=== PATIENT | male | born 1990 | race Caucasian/White ===

== ENCOUNTER 2020-09-10 18:56 | Emergency (ER) | payer MEDICAID, SELFPAY ==
[2020-09-10 18:58] VITALS: BP 120/77; PULSE 90; RESP 16; TEMP 36.9; O2SAT 99; BMI 27.3
--- NOTE | 2020-09-10 19:11 | RAD_ITS ---
STUDY: X-RAY - RIGHT FOOT CLINICAL: Male, 30 years old. foot pain after injury TECHNIQUE: 3 view(s) of the foot. COMPARISON: None. FINDINGS: Normal talus, calcaneus, and tarsal bones. Normal visualized subtalar, talonavicular, calcaneocuboid, tarsal and tarsometatarsal articulations. Normal metatarsi. No visualized fracture or displaced bony fragment. Normal metatarsophalangeal joint of the great toe. Normal tibial and fibular sesamoid bones. Normal interphalangeal joint of the great toe. Normal phalanges of the great toe. Normal second through fifth metatarsophalangeal joints. Normal interphalangeal joints and phalanges of the lesser toes. The soft tissue structures are unremarkable. RAD/Foot min 3 Views IMPRESSION: Normal x-ray examination of the foot. Electronically Signed: Bebeto Duggan MD at 20:12 EDT , Service support ,
--- NOTE | 2020-09-10 19:15 | RAD_ITS ---
STUDY: X-RAY - RIGHT ANKLE REASON FOR EXAM: Male, 30 years old. pain TECHNIQUE: 3 view(s) of the ankle. COMPARISON: None. FINDINGS: Normal visualized distal tibia and fibula. Normal medial and lateral malleoli. Normal tibiotalar articulation and ankle mortise. Normal visualized talus and calcaneus. The visualized subtalar, talonavicular, calcaneocuboid and tarsal articulations are normal. There is no demonstrated fracture. The soft tissue structures are unremarkable. RAD/Ankle min 3 Views IMPRESSION: Normal x-ray examination of the ankle. Electronically Signed: Bebeto Duggan MD at 20:12 EDT , Service support ,
--- NOTE | 2020-09-10 19:53 | EDS_ITS ---
HPI History of Present Illness Chief Complaint: Lower Extremity Injury Narrative Narrative: Patient presenting with right ankle pain. He states he stepped off a curb and has noticed pain on the medial aspect of his right ankle as well as the right foot. Patient is ambulatory with antalgic gait. He denies paresthesias. [facility] Medical History (Updated 09/10/20 @ 20:20 by Viviane Ball) Anxiety Allergy/AdvReac Type Severity Reaction Status Date / Time iodine Allergy Rash Verified 09/10/20 19:02 latex Allergy Rash Verified 09/10/20 19:02 paliperidone [From Invega] Allergy Rash Verified 09/10/20 19:02 Penicillins Allergy NEEDS Verified 09/10/20 19:02 FOLLOW-UP sertraline [From Zoloft] Allergy Rash Verified 09/10/20 19:02 Social History Smoking Status: Current every day smoker tobacco type: cigarettes ROS ROS ED Constitutional Constitutional ED: Denies chills or fever(s) Eyes Eyes: Denies blurry vision or diplopia ENT ENT ED: Denies rhinorrhea or sore throat Cardiovascular Cardiovascular: Denies chest pain or palpitations Respiratory/Chest Respiratory/Chest: Denies cough or dyspnea Gastrointestinal Gastrointestinal: Denies abdominal pain, nausea or vomiting Genitourinary Genitourinary ED: Denies dysuria, hematuria or urinary frequency Musculoskeletal Musculoskeletal: Reports other Details: Right ankle and foot pain Integumentary Denies abscess or rash Neurologic Neurologic: Denies headache(s) or paresthesias EXAM Physical Exam Const Vital Signs: 09/10/20 18:58 Temperature 98.4 F Temperature Source Oral Pulse Rate 90 Respiratory Rate 16 Blood Pressure 120/77 Blood Pressure Mean 91 Pulse Ox 99 Oxygen Delivery Method Room Air Positive well nourished General Appearance ED: NAD HEENT Reports moist mucous membranes trauma Eyes PERRL and EOMs intact bilaterally Resp normal respiratory effort and clear to auscultation bilaterally Cardio regular rate and regular rhythm Extremity Extremity Narrative: Tenderness to palpation right medial malleolus and right medial foot. No obvious bony abnormality. Pain at the base of the fifth metatarsal. Pedal pulses 2+. Prescription for all 5 toes. Sensation intact. Neuro oriented x3 Sensorium / Orientation: alert Psych mental status grossly normal Skin no rashes or lesions noted and no wounds MDM MDM MDM Narrative Medical decision making narrative: Patient presenting with right ankle and foot pain. X-rays of the right ankle and foot has my interpretation shows no acute fracture or subluxation. Patient states he needs crutches to ambulate secondary to pain. Patient placed in Aircast and Cornelius wrap. He is given crutches. He will use ibuprofen and Tylenol alternating doses for pain. He is also counseled to elevate and ice the right ankle. Patient stable for discharge at this time. Impression: 1. Right ankle sprain 2. Right foot sprain Radiography Diagnostic Testing: Radiology Impression Foot X-Ray 09/10/20 19:11 IMPRESSION: Normal x-ray examination of the foot. Electronically Signed: Bebeto Duggan MD at 20:12 EDT , Service support , Ankle X-Ray 09/10/20 19:15 IMPRESSION: Normal x-ray examination of the ankle. Electronically Signed: Bebeto Duggan MD at 20:12 EDT , Service support , Discharge Plan Triage Chief Complaint: Lower Extremity Injury ED Provider: Fam Monge Dx/Rx/DC Orders Instructions: ED Ankle Sprain (Adult) Primary Care Provider: Care Physician,No Primary Referrals: Care Physician,No Primary [Primary Care Provider] - Disposition Disposition: Home, Self Care
[2020-09-10] MEDS: Naproxen 500 MG Tablet PO (20:35)
== END 2020-09-10 20:57 | disposition home or self-care (01) ==
PROVIDERS: Emergency Provider Student in an Organized Health Care Education/Training Program
DX: S93.401A Sprain of unspecified ligament of right ankle, initial encounter (principal); S93.601A Unspecified sprain of right foot, initial encounter; F17.210 Nicotine dependence, cigarettes, uncomplicated; X58.XXXA Exposure to other specified factors, initial encounter
CPT/HCPCS: 73610; 73630; 99285

== ENCOUNTER 2020-09-11 21:11 | Emergency (ER) | payer MEDICAID, SELFPAY ==
[2020-09-10 18:58] VITALS: BMI 27.3
[2020-09-11 21:13] VITALS: BP 131/87; PULSE 75; RESP 16; TEMP 36.8; O2SAT 100; BMI 25.5
--- NOTE | 2020-09-11 22:20 | EX.ED.DYSGE1 ---
HPI History of Present Illness Chief Complaint: Seizure Informant: patient Onset/Context/Timing Onset: Today Narrative Narrative: Patient is a 30-year-old male with history of seizure disorder as well as psychiatric disorder presenting for concern of breakthrough seizure activity. Patient states he ran out of his Keppra and when he went to get it refilled to the pharmacy not have insurance information so is unable to get this prescription. He has been without it for couple days. He states while he was at [employer] she started having an episode of seizures. Patient describes the seizures as blinking of his eyes and shaking of his right arm. That has stopped but he feels that his right arm is still tremulous. Patient denies any other complaints at this time. Patient notes he is currently homeless. [facility] Medical History Anxiety Epileptic Home Medications levetiracetam [Keppra] 500 mg PO BID #20 tab 09/11/20 [Rx Last Taken Unknown] Allergy/AdvReac Type Severity Reaction Status Date / Time iodine Allergy Rash Verified 09/10/20 19:02 latex Allergy Rash Verified 09/10/20 19:02 paliperidone [From Invega] Allergy Rash Verified 09/10/20 19:02 Penicillins Allergy NEEDS Verified 09/10/20 19:02 FOLLOW-UP sertraline [From Zoloft] Allergy Rash Verified 09/10/20 19:02 Surgical History Hx of tonsillectomy Social History Smoking Status: Current every day smoker tobacco type: cigarettes ROS ROS ED Constitutional Constitutional ED: Denies chills or fever(s) Eyes Eyes: Denies blurry vision or change in vision ENT ENT ED: Denies ear pain or sore throat Cardiovascular Cardiovascular: Denies chest pain Respiratory/Chest Respiratory/Chest: Denies dyspnea Gastrointestinal Gastrointestinal: Denies abdominal pain or vomiting Musculoskeletal Musculoskeletal: Reports other Details: Right ankle pain?recent sprain ; Denies arthralgias or myalgias Integumentary Denies rash Neurologic Neurologic: Reports other Details: Seizure activity ; Denies headache(s) or weakness Psychiatric Psychiatric: Denies anxiety or depression EXAM Physical Exam Const Vital Signs: 09/11/20 21:13 09/11/20 22:31 09/11/20 22:51 Temperature 98.3 F Temperature Source Oral Pulse Rate 75 88 75 Respiratory Rate 16 16 16 Blood Pressure 131/87 H 128/74 H 127/81 H Blood Pressure Mean 101 92 Pulse Ox 100 97 99 Oxygen Delivery Method Room Air Room Air Positive well nourished and well developed General Appearance ED: well developed HEENT Reports moist mucous membranes Negative for tenderness Eyes PERRL and EOMs intact bilaterally Neck no lymphadenopathy, supple and no meningeal signs Chest Wall inspection of chest normal Resp normal respiratory effort and clear to auscultation bilaterally Cardio regular rate, regular rhythm and no murmurs GI normal to inspection, nondistended, normoactive bowel sounds Extremity normal to inspection Extremity Narrative: brace on Right ankle General Extremety ED: Negative for edema or tenderness General Extremity: Negative for edema Neuro oriented x3, CN's II-XII intact bilaterally and no sensory deficits noted Neuro Narrative: Patient has mild tremor of his right hand that resolves with distraction. 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 Patient is given a dose of his Keppra in the ER. He is monitored. Does not have any further seizure activity. I do not think this tremor in his hand is seizure activity. Patient will be discharged from the ER. At this time I do not think he requires further work-up. Discharge Plan Triage Chief Complaint: Seizure ED Provider: Sienna Parrish Dx/Rx/DC Orders Clinical Impression: Breakthrough seizure, Noncompliance with medication regimen Instructions: ED Seizure, Recurrent (Adult) Prescriptions: New levetiracetam [Keppra] 500 mg tablet 500 mg PO BID Qty: 20 RF: 0 Primary Care Provider: Care Physician,No Primary Referrals: Jenny Chacon [NON-STAFF] - Care Physician,No Primary [Primary Care Provider] - Disposition Disposition: Home, Self Care Discharge Date/Time: 09/11/20 23:10
[2020-09-11] MEDS: levETIRAcetam 1,000 MG Tablet 1000 MG PO (22:30)
[2020-09-11 22:31] VITALS: BP 128/74; PULSE 88; RESP 16; O2SAT 97
[2020-09-11 22:51] VITALS: BP 127/81; PULSE 75; RESP 16; O2SAT 99
== END 2020-09-11 23:10 | disposition home or self-care (01) ==
LOC: ED 22:39
PROVIDERS: Emergency Provider Emergency Medicine
DX: R56.9 Unspecified convulsions (principal); F17.210 Nicotine dependence, cigarettes, uncomplicated; Z91.14 Patient's other noncompliance with medication regimen; Z59.0 Homelessness
CPT/HCPCS: 99284

== ENCOUNTER 2020-09-19 17:36 | Emergency (ER) | payer MEDICAID, SELFPAY ==
[2020-09-19 17:37] VITALS: BP 122/82; PULSE 90; RESP 16; TEMP 37.1; O2SAT 97; BMI 24.2
[2020-09-19 18:45] VITALS: RESP 12
[2020-09-19 18:47] LABS: Absolute Lymphocyte Count 1.89 X10^3/uL (0.83-4.51); Absolute Neutrophil Count 5.3 X10^3/uL (2.0-7.7); Basophil# 0.02 X10^3/uL; Basophil% 0.3 % (0-1); Eosinophil# 0.03 X10^3/uL; Eosinophils% 0.4 % (0-5); Hematocrit 42.7 % (40-54); Hemoglobin 13.9 g/dL (13.0-16.5); Lymphocyte # 1.89 X10^3/ul (0.83-4.51); Mean Corp Hgb Conc 32.6 g/dL (32-36); Mean Corpuscular Hgb 28.2 pg (27.0-32.0); Mean Corpuscular Volume 86.6 fL (80-94); Mean Platelet Vol. 9.1 fl (6.2-12.0); Monocyte# 0.58 X10^3/uL; Monocyte% 7.4 % (0-10); NRBC Flagged by Analyzer 0 % (0-5); Neutrophil # 5.33 X10^3/uL (2.7-7.7); Neutrophil % 67.5 % (47-70); Platelet Count 250 K/mm3 (150-450); RBC Distribution Width CV 13.6 % (11.6-14.6); RBC Distribution Width SD 41.8 fl (35.1-43.9); Red Blood Count 4.93 M/mm3 (4.6-6.2); White Blood Count 7.9 K/mm3 (4.4-11.0)
[2020-09-19 18:58] LABS: Anion Gap 7 (5-15); BUN 16 mg/dL (7-18); BUN/Creat Ratio 19.2 RATIO (10-20); Calcium,Total 9.5 mg/dL (8.5-10.1); Chloride 106 mmol/L (98-107); Creatinine, Serum 0.83 mg/dL (0.70-1.30); EST Glomerular Filtration Rate 116 mL/min (>60); Est Glom Filt Rate - Afr Amer 140 mL/min (>60); Estimated Creatinine Clearance 131.32 ml/min; Glucose 89 mg/dL (74-106); Potassium 3.7 mmol/L (3.5-5.1); Sodium Level 140 mmol/L (136-145)
[2020-09-19 19:15] VITALS: RESP 18
[2020-09-19 19:18] LABS: Amphetamine Urine VISTA POSITIVE (<1000 ng/mL); Barbiturate Urine VISTA NEGATIVE (< 200 ng/mL); Benzodiazepine Urine VISTA NEGATIVE (< 200 ng/mL); Cocaine Urine VISTA NEGATIVE (< 300 ng/mL); Ecstacy Urine VISTA POSITIVE (< 500 ng/mL); Methadone Urine VISTA NEGATIVE (< 300 ng/mL); PCP Urine VISTA NEGATIVE (< 25 ng/mL); THC Urine VISTA POSITIVE (< 50 ng/mL); Vista UDS pH Range 6
[2020-09-19 20:05] VITALS: RESP 13
[2020-09-19 20:22] LABS: AST(SGOT) 23 U/L (15-37); Alanine Aminotransfer ALT/SGPT 51 U/L (16-61); Albumin, Serum 4.1 g/dL (3.2-5.0); Alkaline Phosphatase 124 U/L (45-117); Bilirubin, Direct 0.22 mg/dL (0.00-0.30); Protein, Total 8.1 g/dL (6.4-8.2)
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
[2020-09-19 20:51] VITALS: BP 145/80; PULSE 90; RESP 12; O2SAT 95
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
== END 2020-09-19 21:02 | disposition home or self-care (01) ==
PROVIDERS: Emergency Provider Emergency Medicine
DX: R45.851 Suicidal ideations (principal); F15.20 Other stimulant dependence, uncomplicated; Z59.0 Homelessness; G40.909 Epilepsy, unspecified, not intractable, without status epilepticus; F31.9 Bipolar disorder, unspecified; F43.10 Post-traumatic stress disorder, unspecified; Z79.899 Other long term (current) drug therapy; F17.210 Nicotine dependence, cigarettes, uncomplicated
CPT/HCPCS: 36415; 80048; 80076; 80307; 82077; 85025; 87426; 99283

== ENCOUNTER → 2023-12-27 | Outpatient (CLI) | payer MEDICAID, SELFPAY ==
[2023-12-27 12:46] LABS: Absolute Lymphocyte Count 1.73 X10^3/uL (0.83-4.51); Absolute Neutrophil Count 2.3 X10^3/uL (2.0-7.7); Basophil# 0.03 X10^3/uL; Basophil% 0.6 % (0-1); Eosinophil# 0.02 X10^3/uL; Eosinophils% 0.4 % (0-5); Hemoglobin 15.5 g/dL (13.0-16.5); Lymphocyte # 1.73 X10^3/ul (0.83-4.51); Lymphocyte % 37.3 % (19-41); Mean Corp Hgb Conc 34.4 g/dL (32-36); Mean Corpuscular Hgb 30.6 pg (27.0-32.0); Mean Corpuscular Volume 88.9 fL (80-94); Mean Platelet Vol. 9.4 fl (6.2-12.0); Monocyte# 0.56 X10^3/uL; Monocyte% 12.1 % (0-10); NRBC Flagged by Analyzer 0 % (0-5); Neutrophil # 2.28 X10^3/uL (2.7-7.7); Neutrophil % 49.2 % (47-70); Platelet Count 199 K/mm3 (150-450); RBC Distribution Width CV 12.5 % (11.6-14.6); RBC Distribution Width SD 40.9 fl (35.1-43.9); Red Blood Count 5.06 M/mm3 (4.6-6.2); White Blood Count 4.6 K/mm3 (4.4-11.0)
[2023-12-27 13:01] LABS: Vitamin B12 494 pg/mL (211-911); Vitamin D,25 Hydroxy 10.4 ng/mL
[2023-12-27 13:06] LABS: ALB/GLOB Ratio 1.2 RATIO (0.9-2.4); AST(SGOT) 20 U/L (15-37); Alanine Aminotransfer ALT/SGPT 72 U/L (16-61); Alkaline Phosphatase 60 U/L (45-117); Anion Gap 2 (5-15); BUN 15 mg/dL (7-18); BUN/Creat Ratio 18.8 RATIO (10-20); Calcium,Total 9.4 mg/dL (8.5-10.1); Chloride 104 mmol/L (98-107); Cholesterol 232 mg/dL (200); EST Glomerular Filtration Rate 119 mL/min (>60); Est Glom Filt Rate - Afr Amer 144 mL/min (>60); Globulin 3.2 g/dL (2.2-4.2); Glucose 81 mg/dL (74-106); High Density Lipoprotein 80 mg/dL; Potassium 3.8 mmol/L (3.5-5.1); Protein, Total 7.2 g/dL (6.4-8.2); Sodium Level 138 mmol/L (136-145); Triglycerides 90 mg/dL; Very Low Density Lipoprotein 18 mg/dL (5-40)
[2023-12-27 13:18] LABS: Hemoglobin A1c 5.3 % (3.8-5.6)
== END | disposition home or self-care (01) ==
LOC: VSLAB 08:01
PROVIDERS: PCP Family Medicine
DX: Z00.00 Encounter for general adult medical examination without abnormal findings (principal); E55.9 Vitamin D deficiency, unspecified
CPT/HCPCS: 36415; 80053; 80061; 82306; 82607; 83036; 84443; 85025